=== PATIENT | female | born 1995 | race Caucasian/White ===

== ENCOUNTER 2023-12-23 16:15 | Emergency (ER) | payer BC, SELFPAY ==
[2023-12-23 16:21] VITALS: BP 121/78; BMI 22.9
--- NOTE | 2023-12-23 17:07 | ED.GENMED ---
History of Present Illness
<Sonu Dorman PA-C - Last Filed: 12/24/23 12:35>
General
Chief Complaint: Urinary Symptoms
Source: patient
Time Seen by Provider: 12/23/23 16:51
Travel History
Have you had any contact with someone who has COVID-19?: No
Do you have any symptoms of coronavirus? Fever > 100 degrees, chills, cough, shortness of breath, sore throat, loss of taste or smell, muscle aches, or headache?: No
History of Present Illness
History of Present Illness:
28-year-old female with no significant past medical history presenting the emergency department for evaluation of right-sided flank pain that started radiating into the right lower pelvic area over the last 12 hours, hematuria, sent by primary care
provider for further evaluation. Patient notes symptoms did start on Tuesday and have seemingly gotten worse. She denies any fevers, bowel changes, urinary frequency/urgency/dysuria. She notes this morning she had a little bit of nausea and 1
episode of nonbloody nonbilious emesis. Nausea currently resolved. She attempted some Tylenol PM on Tuesday evening with some relief, yesterday evening with no relief. Has not taken anything for pain yet today. Patient does note that she is
currently trying to get with her last menstrual period being on December 07.
Past History
<Sonu Dorman PA-C - Last Filed: 12/24/23 12:35>
Past History
ED Past Medical History: None
ED Past Surgical History: None
Social History
Tobacco: Non-smoker
Alcohol: None
Drug: None
Personal:
Living: with family
Employment: Employed
Review of Systems
<Sonu Dorman PA-C - Last Filed: 12/24/23 12:35>
Review of Systems
All Other Systems: ROS reviewed and negative except as documented in HPI and ROS
Phy Exam
<Sonu Dorman PA-C - Last Filed: 12/24/23 12:35>
Physical Exam
Physical Exam:
GENERAL: Alert , in no apparent distress
EYE: clear conjunctiva b/l
HEAD: NCAT
ENT: o/p clr, mmm.
ABDOMEN: Soft, without focal tenderness, no r/g, mild right CVA tenderness
NEUROLOGICAL: Alert and oriented
SKIN: Warm and dry, skin intact.
MUSCULOSKELETAL: well perfused.
PSYCH: Normal and appropriate interaction.
Scores
<Sonu Dorman PA-C - Last Filed: 12/24/23 12:35>
Heart Failure Risk
Heart Failure Risk Score: Not Applicable
Heart Score for Chest Pain Patients
STEMI patient?: Not applicable
Withdrawal Assessment of Alcohol
Withdrawal Assessment Completed?: Not applicable
Course
<Sonu Dorman PA-C - Last Filed: 12/24/23 12:35>
Orders/Labs/Results
Orders:
Orders
12/23/23 16:53
Test Result ONCE
12/23/23 16:54
CT Abd/pel Without Iv Or Oral Urgent
Comment:
Reason For Exam: hematuria, lower back pain
12/23/23 16:59
Urinalysis Reflex To Culture Urgent
Date Specimen was Collected: 12/23/23
Time Specimen was Collected: 16:58
Urine Microscopic Reflex Cult Urgent
12/23/23 17:13
Complete Blood Count/With Diff Urgent
Comprehensive Metabolic Panel Urgent
HCG, Serum Qualitative Screen Urgent
12/23/23 18:14
US Pelvis W Transvag Combined Urgent
Reason For Exam: right sided mass, ? torsion
12/23/23 19:13
Ketorolac [Toradol] 15 mg IV NOW STA
12/23/23 19:14
Ketorolac [Toradol] 15 mg .ROUTE .STK-MED ONE
Abnormal Lab Results
12/23/23 12/23/23
16:59 17:13
MCH 32.4 H pg
(27.0-31.0)
Absolute Monos (auto) 0.7 H 10^3/uL
(0.1-0.6)
Monocytes % 9.7 H %
(1.7-9.3)
Ur Occult Blood Reflex 3+ A
(Negative)
Urine RBC 26-30 A /HPF
(0-2)
Urine Bacteria (Reflex) Few A
(Negative)
12/23/23 17:13
12/23/23 17:13
Vital Signs
Initial and Last Documented VS:
Initial Vital Signs
Temp Pulse Resp BP Pulse Ox
98.1 F 78 16 121/78 98
12/23/23 16:21 12/23/23 16:21 12/23/23 16:21 12/23/23 16:21 12/23/23 16:21
Last Documented Vital Signs
Temp Pulse Resp BP Pulse Ox
98.1 F 71 16 121/72 98
12/23/23 16:21 12/23/23 20:01 12/23/23 20:01 12/23/23 20:01 12/23/23 20:01
Mllt;Amari Tamayo PA-C - Last Filed: 12/23/23 23:29>
Orders/Labs/Results
Orders:
Orders
12/23/23 16:53
Test Result ONCE
12/23/23 16:54
CT Abd/pel Without Iv Or Oral Urgent
Comment:
Reason For Exam: hematuria, lower back pain
12/23/23 16:59
Urinalysis Reflex To Culture Urgent
Date Specimen was Collected: 12/23/23
Time Specimen was Collected: 16:58
Urine Microscopic Reflex Cult Urgent
12/23/23 17:13
Complete Blood Count/With Diff Urgent
Comprehensive Metabolic Panel Urgent
HCG, Serum Qualitative Screen Urgent
12/23/23 18:14
US Pelvis W Transvag Combined Urgent
Reason For Exam: right sided mass, ? torsion
12/23/23 19:13
Ketorolac [Toradol] 15 mg IV NOW STA
12/23/23 19:14
Ketorolac [Toradol] 15 mg .ROUTE .STK-MED ONE
Abnormal Lab Results
12/23/23 12/23/23
16:59 17:13
MCH 32.4 H pg
(27.0-31.0)
Absolute Monos (auto) 0.7 H 10^3/uL
(0.1-0.6)
Monocytes % 9.7 H %
(1.7-9.3)
Ur Occult Blood Reflex 3+ A
(Negative)
Urine RBC 26-30 A /HPF
(0-2)
Urine Bacteria (Reflex) Few A
(Negative)
12/23/23 17:13
12/23/23 17:13
Vital Signs
Initial and Last Documented VS:
Initial Vital Signs
Temp Pulse Resp BP Pulse Ox
98.1 F 78 16 121/78 98
12/23/23 16:21 12/23/23 16:21 12/23/23 16:21 12/23/23 16:21 12/23/23 16:21
Last Documented Vital Signs
Temp Pulse Resp BP Pulse Ox
98.1 F 71 16 121/72 98
12/23/23 16:21 12/23/23 20:01 12/23/23 20:01 12/23/23 20:01 12/23/23 20:01
<Sonu Dorman PA-C - Last Filed: 12/24/23 12:35>
MDM/Problems Addressed
Differential Diagnosis Includes:
related complications, urinary tract infection, renal/ureteral colic
MDM/Problems Addressed:
28-year-old female presenting the emergency department for 2 days of hematuria and right-sided flank pain. 1 episode of vomiting earlier this morning with symptoms mostly resolved. Patient still notes some mild right-sided flank pain. I suspect
renal/ureteral colic or urinary tract infection to be the most likely diagnosis however patient does note that her and her significant other are currently trying to conceive so will rule out via lab test. Patient declining any medications
for symptoms at this time. Disposition pending.
<Sonu Dorman PA-C - Last Filed: 12/24/23 12:35>
*Radiology
Radiology exam reviewed: radiology read reviewed
*Pulse Oximetry
Patient hypoxic: no
*Critical Care Note
Total Time (30-74mins, 75-104mins- exclusive of procedures): Not Applicable
<Sonu Dorman PA-C - Last Filed: 12/24/23 12:35>
Comment
Comment:
Received notification from radiology that patient has a 5.2 cm mass within the right posterior pelvis which is probably a right ovarian mass. Possibly hemorrhagic ovarian cyst versus ovarian endometrioma versus cystic ovarian tumor which was
thought to be less likely as well as an edematous right ovary secondary to ovarian torsion. Given patient's pain was more gradual in onset I am less suspicious for torsion but to better evaluate the mass will obtain a stat transvaginal ultrasound.
Reassessment following.
<Amari Tamayo PA-C - Last Filed: 12/23/23 23:29>
Update Note
Update Note:
December 22 7:32 PM: Assumed care pending ultrasound of pelvis. Ultrasound was performed and demonstrates 4.5 cm hemorrhagic ovarian cyst on the right side with a mild amount of free fluid. No evidence of torsion on the ultrasound. Patient reassured.
Will advise she follow-up with her radiology teacher for recheck. Patient reexamined overall looks well nontoxic. Will discharge with follow-up with gynecology.
ED Attending Note
<Sonu Dorman PA-C - Last Filed: 12/24/23 12:35>
-
Portions of this chart may have been created with voice recognition software.� Occasional wrong word or��sound alike� substitutions may have occurred due to the inherent limitations of voice recognition software.
Discharge Plan
Departure
Patient Disposition: Home (Routine Discharge)
Date of Disposition: 12/23/23
Time of Disposition: 19:34
Patient with high blood pressure during this ER visit?: No
Discharge Problem:
Ovarian cyst
Instructions: Ovarian Cyst ED
Referrals:
Shabnam Kaur CRNP [Family Provider] -
Activity Restrictions/Additional Instructions:
You may use ibuprofen or Tylenol for pain. Please return here for worsening symptoms otherwise follow-up with her radiology teacher for recheck and possible repeat imaging
Interventions
Interventions:
*Risk Screen - Suicide Last Done: 12/23/23 16:21
*General Assessment Last Done: 12/23/23 17:16
*Neglect/Abuse Screening Last Done: 12/23/23 17:16
ED- Fall Risk Assessment Last Done: 12/23/23 17:18
*ED COVID-19 Vaccine History Last Done: 12/23/23 16:21
*Nursing Disposition Last Done: 12/23/23 20:01
ED-Female Genitourinary Assessment Last Done: 12/23/23 17:18
Discharge Date and Time
Discharge Date/Time: 12/23/23 20:03
Print Language: CROATIAN
[2023-12-23 17:10] LABS: Urine Albumin Negative (Neg - Trace); Urine Bilirubin Negative (Negative); Urine Color Yellow; Urine Glucose Negative (Negative); Urine Ketone Negative (Negative); Urine Leukocyte Negative (Negative); Urine Nitrite Negative (Negative); Urine Occult Blood 3+ (Negative); Urine Specific Gravity 1.015 (<1.030); Urine Urobilinogen Negative (Neg - 1+)
[2023-12-23 17:22] LABS: % Basophils 0.8 % (0-2); % Eosinophils 0.5 % (0-6); % Immature Granulocytes 0.1 % (0-0.5); % Lymphocytes 25.5 % (20.5-51.1); % Monocytes 9.7 % (1.7-9.3); % Neutrophils 63.4 % (42.2-75.2); Absolute Basophils 0.1 10^3/uL (0-0.2); Absolute Lymphocytes 1.9 10^3/uL (1.2-3.4); Absolute Monocytes 0.7 10^3/uL (0.1-0.6); Absolute Neutrophils 4.7 10^3/uL (1.4-6.5); Hematocrit 39.3 % (37.0-47.0); Hemoglobin 13.6 g/dL (12.0-16.0); Mean Corp Hgb Conc. 34.6 g/dL (33.0-37.0); Mean Corpuscular Hgb 32.4 pg (27.0-31.0); Mean Corpuscular Volume 93.6 fL (81.0-99.0); Mean Platelet Volume 9.9 fL (7.4-10.4); Nucleated Red Blood Cells % 0 %; Platelet Count 202 10^3/uL (130-400); Red Cell Dist. Width 12.4 % (11.5-14.5); White Blood Cell Count 7.4 10^3/uL (4.8-10.8)
[2023-12-23 17:24] LABS: Urine Character Slightly Cloudy (Clear)
[2023-12-23 17:26] LABS: Urine Red Blood Cell 26-30 /HPF (0-2); Urine Squamous Cell >30 /LPF (Few)
[2023-12-23 17:28] LABS: Urine Bacteria Few (Negative); Urine White Cell 0-2 /HPF (0-5)
[2023-12-23 17:32] LABS: HCG, Serum Qualitative Screen Negative
[2023-12-23 17:49] LABS: ALT (SGPT) 20 U/L (0-35); AST (SGOT) 25 U/L (14-36); Albumin 4.5 g/dl (3.5-5.0); Alkaline Phosphatase 43 U/L (38-126); Blood Urea Nitrogen 9 mg/dl (7-17); Calcium 9.7 mg/dl (8.4-10.2); Carbon Dioxide 25 mmol/L (22-30); Chloride 107 mmol/L (98-107); Estimated Creatinine Clearance 108 ml/min; Glucose 75 mg/dl (70-99); Potassium 3.9 mmol/L (3.5-5.1); Sodium 137 mmol/L (135-145); Total Bilirubin 0.7 mg/dl (0.2-1.3); Total Protein 7.3 g/dl (6.3-8.2); eGFR > 60.00
[2023-12-23] MEDS: TORADOL 15 MG IV (19:16)
[2023-12-23 19:20] VITALS: BP 121/22
[2023-12-23 20:01] VITALS: BP 121/72
== END 2023-12-23 20:03 | disposition home or self-care (01) ==
LOC: EMR 16:15
PROVIDERS: Physician Assistant Medical; EMERGENCY PHYSICIAN Emergency Medicine; FAMILY PHYSICIAN Nurse Practitioner Adult Health
DX: N83.201 Unspecified ovarian cyst, right side (principal)
CPT/HCPCS: 99284; 96374; 74176; 76830; 76856; 80053; 81003; 81015; 84703; 85025